=== PATIENT | male | born 1970 | race Hispanic/Latino ===

== ENCOUNTER 2023-05-16 15:11 | Emergency (ER) | payer BC ==
[~2023-05-16] VITALS: Ht 170.2 cm; Wt 103.9 kg
[2023-05-16 15:26] VITALS: BP 156/85; PULSE 83; RESP 18; O2SAT 99
[2023-05-16] MEDS ORDERED: FLUORESCEIN SODIUM 1 STRIP STRIP ONE ×2 (16:00→16:29)
[2023-05-16] MEDS ORDERED: TETRACAINE HCL 0.5% 4 ML OPHTH SOLN OD SCH (16:00)
[2023-05-16] MEDS ORDERED: TETANUS/DIPHTHERIA TOXOID [ADULT] 0.5 ML VIAL IM ONE (16:00)
[2023-05-16] MEDS ORDERED: POLYOS OD (16:38)
[2023-05-16] MEDS ORDERED: DICL2.5D7 OP (16:38)
== END 2023-05-16 16:44 | disposition home or self-care (01) ==
LOC: EDH 15:11
DX: T15.01XA Foreign body in cornea, right eye, initial encounter (principal); I10 Essential (primary) hypertension; E11.9 Type 2 diabetes mellitus without complications; E78.00 Pure hypercholesterolemia, unspecified; Z79.899 Other long term (current) drug therapy; Z98.890 Other specified postprocedural states; Z88.8 Allergy status to other drugs, medicaments and biological substances; X58.XXXA Exposure to other specified factors, initial encounter; Y93.89 Activity, other specified; Y92.89 Other specified places as the place of occurrence of the external cause; Y99.8 Other external cause status
CPT/HCPCS: 65222; 90471; 90714